=== PATIENT | male | born 1990 | race Caucasian/White ===

== ENCOUNTER 2016-05-17 21:57 | Emergency (ER) | payer BC ==
[~2016-05-17] VITALS: Ht 177.8 cm; Wt 145.1 kg
[~2016-05-17 21:57] MED LIST: Aspirin PO; Cardizem CD,Cartia X PO; Habitrol,Nicoderm CQ TD; NOHOMEMEDS; XARELTO15 MG PO; XARELTO20 MG PO
[2016-05-18] MEDS ORDERED: XARELTO15 MG PO (02:02)
[2016-05-18 02:21] LABS: HEMATOCRIT 42.4 % (38.0-50.0); MCH 27.7 PG (29.0-34.0); MCHC 34.4 G/DL (30.0-36.0); MCV 80.3 FL (86-99); MEAN PLAT.VOLUME 8.5 uM^3 (9.0-12.4); PLATELET COUNT 146 K/uL (156-360); RBC DIS.WIDTH-CV 13.2 % (11.8-14.6); RBC DIS.WIDTH-SD 37.9 % (39-53); RED BLOOD COUNT 5.28 M/uL (4.00-5.50); WHITE BLOOD COUNT 10.6 K/uL (4.1-10.2)
[2016-05-18 02:28] LABS: CHLORIDE 106 mEq/L (99-109)
[2016-05-18 02:29] LABS: SODIUM 141 mEq/L (136-147)
[2016-05-18 02:30] LABS: GLUCOSE 102 mg/dL (70-99)
[2016-05-18 02:32] LABS: ANION GAP 13 MEQ/L (2-14)
[2016-05-18 02:34] LABS: GFR ESTIMATE (CALCULATED) > 59 mL/min/
[2016-05-18 02:35] LABS: INTER. NORMALIZED RATIO 1.1; PROTHROMBIN TIME 10.7 (9.2-11.2); UREA NITROGEN (BUN) 16 mg/dL (9-23)
[2016-05-18 02:45] VITALS: BP 125/75
== END 2016-05-18 02:47 | disposition home or self-care (01) ==
LOC: EME 21:57
PROVIDERS: Emergency Medicine
DX: I82.4Z1 Acute embolism and thrombosis of unspecified deep veins of right distal lower extremity (principal); Z86.718 Personal history of other venous thrombosis and embolism; Z87.891 Personal history of nicotine dependence
CPT/HCPCS: 80048; 85027; 85610; 85730; 93971; 99281; 99284